=== PATIENT | male | born 1955 | race Caucasian/White ===

== ENCOUNTER 2016-11-24 07:57 | Outpatient (CLI) | payer OTHER ==
--- NOTE | 2016-11-24 09:27 | NUR ---
09 DR AUGUSTE HERE SPEAKING WITH PATIENT, PROCEDURE CANCELLED PT NOT IN ATRIAL FIBRILLATION. PT TO CONTINUE HOME MEDICATIONS AND FOLLOW UP WTIH DR AUGUSTE IN OFFICE IN 3 WEEKS. 909 REVIEWED DC INSTRUCTIONS WITH PT WHO VERBALIZES UNDERSTANDING. PT AMULATORY AND WITHOUT ANY C/O UPON DC.
== END 2016-11-24 09:10 | disposition home or self-care (01) ==
LOC: D.CATH 07:57
DX: Z53.8 Procedure and treatment not carried out for other reasons (principal)

== ENCOUNTER → 2018-11-29 08:04 | Outpatient (CLI) | payer OTHER | END | disposition home or self-care (01) | LOC: D.HCCARDIO 08:04 | PROVIDERS: ATTEND Internal Medicine Cardiovascular Disease | DX: I48.91 Unspecified atrial fibrillation (principal); R06.00 Dyspnea, unspecified ==

== ENCOUNTER 2018-12-19 11:55 | Outpatient (CLI) | payer OTHER ==
--- NOTE | ~2018-12-19 | HEMODYNAMI ---
PATIENT:MICHA DOYLE MEDICAL RECORD: [id number] : 55 LOCATION:D.CAT ADMISSION DATE: 12/19/18 Generatedon:12/19/201815:24 Patient name: MICHA DOYLE Patient #: [id number] SSN: : 1955 Date of study: 12/19/2018 Page: Of Hemodynamic Procedure Report Patient Data Patient Demographics Procedure consent was obtained First Name: MICHA Gender: Male Last Name: VIVEK : 1955 Middle Initial: WU Age: 63 year(s) Patient #: [id number] Race: Unknown Additional ID: [id number] Contact details [address]: [address] [place] [address] State: [place] City: [place] Zip code: [address] Admission Admission Data Admission Date: 12/19/2018 Admission Time: 11:55 Procedure Procedure Types Cath Procedure Diagnostic Procedure LHC LHC w/Coronaries Procedure Description Procedure Date Procedure Date: 12/19/2018 Procedure Start Time: 15:09 Procedure End Time: 15:21 Procedure Staff Name Function Gino St MD Performing Physician Maeve Becerra RT Monitor Tiffanie Madison RT Scrub Wendy Doyle RN Nurse Eagle Quinones RN Schedule Hanger Procedure Data Cath Procedure Fluoroscopy Diagnostic fluoroscopy Total fluoroscopy Time: 2.2 time: 2.2 min min Diagnostic fluoroscopy Total fluoroscopy dose: 605 dose: 605 mGy mGy Contrast Material Contrast Material Type Amount (ml) Isovue 370 33 Entry Location Entry Primary Successful Side Size Upsize Upsize Entry Closure Coats ccessful Closure Location (Fr) 1 (Fr) 2 (Fr) Remarks Device Remarks Radial Right 5 Fr 5 Fr Mechanical artery Compression Estimated blood loss: 5 ml Diagnostic catheters Device Type Used For End Catheter Placement DIAGNOSTIC Antonio 110cm Multi-vessel 5Fr catheter ([id number]) Angiography Procedure Complications No complications Procedure Medications Medication Administration Route Dosage 0.9% NaCl I.V. 100 ml/hr Oxygen etCO2 Nasal cannula 2 l/min Lidocaine 2% added to field 20 Heparin Flush Bag added to field 2 bags (1000units/500ml NS) Radial Cocktail added to field 1 syringe (Verapamil 2mg/Nitro 400mcg/Heparin 1500units) Versed I.V. 2 mg Fentanyl I.V. 50 mcg Fentanyl I.V. 50 mcg Versed I.V. 2 mg Hemodynamics Rest Heart Rate: 112 (bpm) Pressure Samples Time Site Value (mmHg) Purpose Heart Use Rate(bpm) 15:11 LV 129/16,26 Snapshot 103 15:12 AO 107/75(89) Pullback 95 15:12 LV 117/14,30 Pullback 95 Gradients Valve Time Site 1 Site 2 Mean SEP/DFP Peak To Heart Use (mmHg) (sec/min) Peak Rate (mmHg) (bpm) Aortic 15:12 LV AO 12 24 10 95 117/14,30 107/75(89) Calculations Valve P-P Mean Valve Index Valve Source Name Gradient Area Flow (cm2) Aortic 10 12 10 12 Snapshots Pre Cath Intra NCS Post Cath Vital Signs Time Heart Resp SPO2 etCO2 NIBP (mmHg) Rhythm Pain Sedation Rate (ipm) (%) (mmHg) Status Level (bpm) 14:40:19 78 15 97 33.1 148/113(123) A-Fib 0 (11) 10(A) , No pain 14:45:18 80 21 98 23.3 Measuring A-Fib 0 (11) 10(A) , No pain 14:45:38 88 19 98 35.3 173/113(143) A-Fib 0 (11) 10(A) , No pain 14:50:07 96 14 97 13.5 193/119(158) A-Fib 0 (11) 10(A) , No pain 14:54:43 86 19 98 24 206/101(158) A-Fib 0 (11) 10(A) , No pain 14:59:26 86 16 98 18.8 194/112(142) A-Fib 0 (11) 10(A) , No pain 15:04:25 75 16 97 34.6 Measuring A-Fib 0 (11) 9(A) , No pain 15:05:18 71 14 98 16.5 178/124(155) A-Fib 0 (11) 9(A) , No pain 15:09:49 89 15 98 38.3 192/125(154) A-Fib 0 (11) 9(A) , No pain 15:14:19 94 18 98 10.5 168/102(123) A-Fib 0 (11) 9(A) , No pain 15:18:45 91 16 97 35.4 183/99(131) A-Fib 0 (11) 10(A) , No pain Medications Time Medication Route Dose Verified Delivered Reason Notes E ffectiveness by by 14:39:13 0.9% NaCl I.V. 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 2 mg Gino Wendy for Maciel Doyle sedation RN 14:57:58 Fentanyl I.V. 50 mcg Gino Wendy for Maciel Doyle sedation RN 15:02:09 Fentanyl I.V. 50 mcg Gino Wendy for Maciel Doyle sedation RN 15:02:59 Versed I.V. 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 Start room use. 14:28:57 Signed procedure consent form obtained from patient. 14:28:59 Diagnostic Cath status Elective 14:28:59 Time tracking: Regular hours (M-F 7:00 - 5:00) 14:29:03 Plan of Care:Hemodynamics will remain stable., Cardiac rhythm will remain stable., Comfort level will be maintained., Respiratory function will remain adequate., Patient/ family verbilizes understanding of procedure., Procedure tolerated without complication., Recovers from procedure without complications.. 14:32:00 Patient received from Pre/Post Procedure Room to [facility] 1 Alert and oriented. Tansferred to table in Supine position. 14:32:03 Warm blankets applied, and adebayo hugger turned on for patient comfort. 14:32:03 Correct patient and procedure confirmed by team. 14:32:04 ECG and BP/O2 sat monitors applied to patient. 14:39:04 Vital chart was started 14:39:13 0.9% NaCl 100 ml/hr I.V. was administered by Wendy Doyle RN; used for procedure; 14:39:20 Oxygen 2 l/min etCO2 Nasal cannula was administered by Wendy Doyle RN; used for procedure; 14:39:24 Lidocaine 2% 20ml vial added to field was administered by Gino St MD; for local anesthetic; 14:39:28 Heparin Flush Bag (1000units/500ml NS) 2 bags added to field was administered by Gino St MD; used for procedure; 14:39:34 Radial Cocktail (Verapamil 2mg/Nitro 400mcg/Heparin 1500units) 1 syringe added to field was administered by Gino St MD; used for procedure; 14:46:37 Baseline sample Acquired. 14:47:29 Rhythm: atrial fibrillation, atrial flutter 14:47:32 Full Disclosure recording started 14:47:37 H&P Date Dictated: 12/19/2018 Within 30 days and on chart., H&P Addendum completed by physician on day of procedure. (MUST COMPLETE FOR ALL OUTPATIENTS). 14:47:39 Pre-procedure instructions explained to patient. 14:47:39 Pre-op teaching completed and patient verbalized understanding. 14:47:40 Family in waiting room. 14:47:42 Patient NPO since Midnight. 14:47:43 Is the patient allergic to Iodine/contrast media? No. 14:47:44 Was the patient premedicated? No 14:47:47 Is patient on blood thinner?No 14:48:19 Patient diabetic? Yes. 14:48:22 If diabetic: On Metformin? Yes 14:48:25 If on Metformin: Last Dose? 12/17/2018 14:48:29 Previous problem with sedation/anesthesia? No ? 14:48:31 Snore? Yes 14:48:32 Sleep apnea? Yes 14:48:33 Deviated septum? No 14:48:49 Opens mouth fully? No 14:48:50 Sticks out tongue? No 14:49:00 Airway obstruction? Yes EXERTIONAL ASTHMA 14:49:04 Dentures? No ? 14:50:22 Pre procedure: right dorsailis pedis pulse 2+ Normal; easily identifiable; not easily obliterated 14:50:24 Patient pain scale 0/10 ?. 14:50:31 IV patent on arrival in left forearm with 0.9% NaCl at [facility]. 14:50:34 Lab results completed and on chart. 14:51:50 Right Radial & Right Groin area was prepped with chlora-prep and draped in sterile fashion 14:51:52 Alarms reviewed by R. N. 14:51:52 Sharps counted by scrub and verified by R.N. 14:56:40 Physician arrived 14:56:40 --------ALL STOP TIME OUT------ 14:56:41 Final Timeout: patient, procedure, and site verified with staff and physician. All members of the team are in agreement. 14:56:43 Right Radial & Right Groin site verified by team. 14:56:47 Maximum allowable Isovue 370 dose 300ml. Physician notified. (300ml for normal creatinines. For patients with creatinine of 1.7 or higher multiply weight(kg) x 5 divided by creatinine.) 14:56:56 Fire Safety Assessment: A--An alcohol-based skin anteseptic being used preoperatively., C--Open oxygen or nitrous oxide is being used., D--An ESU, laser, or fiber-optic light is being used. 14:57:01 Physical assessment completed. ASA score P 2 - A patient with mild systemic disease as per Gino St MD. 14:57:08 Sedation plan: IV Moderate Sedation Medication:Versed, Fentanyl 14:57:45 Versed 2 mg I.V. was administered by Wendy Doyle RN; for sedation; 14:57:58 Fentanyl 50 mcg I.V. was administered by Wendy Doyle RN; for sedation; 15:02:09 Fentanyl 50 mcg I.V. was administered by Wendy Doyle RN; for sedation; 15:02:59 Versed 2 mg I.V. was administered by Wendy Doyle RN; for sedation; 15:06:21 Zero performed for pressure channel P1 15:09:26 Procedure started. 15:09:35 Local anesthetic to right radial artery with Lidocaine 2% by Gino St MD.INITIAL ACCESS ONLY 15:10:41 A 5 Fr sheath was inserted into the Right Radial artery 15:11:04 Use device set Radial Dx or PCI 15:11:09 ACIST Syringe (49300) opened to sterile field. 15:11:10 Medline Cath Pack ([id number]) opened to sterile field. 15:11:10 Bag Decanter (2002S) opened to sterile field. 15:11:11 DIAGNOSTIC WIRE .035 260cm J wire (407632) opened to sterile field. 15:11:12 ACIST Hand Control (77099) opened to sterile field. 15:11:12 ACIST Manifold (42479) opened to sterile field. 15:11:13 Tegaderm 4 x 4 (1626W) opened to sterile field. 15:11:13 MBrace Wrist Support ([id number]) opened to sterile field. 15:11:15 NEEDLE Cook 21G 4cm Radial ([id number]) opened to sterile field. 15:11:17 EMERALD Guide Wire (999-692) opened to sterile field. 15:11:25 SHEATH 6FR Slender (87-9265) opened to sterile field. 15:11:29 A DIAGNOSTIC Antonio 110cm 5Fr catheter (104399) was advanced over the wire and used for Multi-vessel Angiography. 15:11:51 LV hemodynamics recorded. 15:11:52 LV gram done using LEHMAN 15:11:55 Injector settings: Ml/sec: 5, Volume: 15, 15:12:17 EF : 25 % 15:13:52 RCA angiography performed. 15:14:04 Injector settings: Ml/sec: 3, Volume: 6, 15:14:46 LCA angiography performed. 15:14:50 Injector settings: Ml/sec: 3, Volume: 6, 15:16:45 Catheter removed. 15:18:53 TR BAND Large ([id number]) opened to sterile field. 15:19:09 Sheath removed intact; hemostasis achieved with Mechanical Compression to the Right Radial artery. 15:19:09 Sheath upsized to a 5 Fr. 15:19:13 Procedure ended.(Physican Out) 15:19:40 Fluoroscopy time 02.20 minutes. 15:19:45 Fluoroscopy dose: 605 mGy 15:19:45 Flurop Dose total: 605 15:19:50 Contrast amount:Isovue 370 33ml. 15:19:51 Sharps counted by scrub and verified by R.N. 15:20:00 TR band inflated with 10cc of air. 15:20:02 Insertion/operative site no bleeding no hematoma. 15:20:10 Post-op/insertion site Right Radial artery dressed using a 4 x 4 and Tegaderm. 15:20:14 Post procedure rhythm: unchanged. 15:20:21 Estimated blood loss: 5 ml 15:20:23 Post procedure instruction explained to patient.Patient verbalizes understanding. 15:20:23 Patient needs reinforcement of post procedure teaching. 15:20:33 Procedure and supply charges have been captured, reviewed, submitted and are correct. 15:20:39 Procedure Complication : No complications 15:20:42 Vital chart was stopped 15:20:49 See physician's report for complete and final results. 15:20:52 Report given to Pre/Post Procedure Room. 15:20:55 Patient transfered to Pre/Post Procedure Room with Stretcher. 15:21:01 Procedure ended. 15:21:01 Full Disclosure recording stopped 15:21:06 End room use (Document Last) Device Usage Item Name Manufacture Quantity Catalog Hospital Part Current Minimal Lot# / Number Charge Number Stock Stock Serial# Code ACIST Acist 1 68524 441528 996726 391869 20 Syringe Medical (29201) Systems Inc Medline Medline 1 [id number] 772814 28057 989034 5 Cath Pack ([id number]) Bag Microtek 1 2001S 472132 84594 230741 5 Decanter Medical Inc. () DIAGNOSTIC [facility] 1 459638 008290 952133 067692 30 WIRE .035 260cm J wire (277043) ACIST Hand Acist 1 88226 756605 002997 156912 5 Control Medical (19044) Systems Inc ACIST Acist 1 23428 349603 452712 752810 5 Manifold Medical (89083) Systems Inc Tegaderm 4 3M 1 1626W 386332 520804 528519 5 x 4 (1626W) MBrace Advanced 1 140-0250-00 651061 03423 196754 5 Wrist Vascular Support Dynamics ([id number]) NEEDLE Polybiotics 1 V46794 298652 463439 171132 5 21G 4cm Radial (Z17885) EMERALD Cardinal 1 502-195 233888 605718 737251 5 Guide Wire Health (729-206) SHEATH 6FR Terumo 1 [id number] 981158 002671 323092 5 Slender (801060) DIAGNOSTIC Terumo 1 40-5023 116327 084766 803052 5 Antonio 110cm 5Fr catheter (258283) TR BAND Terumo 1 [id number] 010578 675555 832863 40 Large ([id number]) Signature Audit [place] Stage Time Signature Unsigned Intra-Procedure 12/19/2018 Maeve Becerra 3:24:42 PM RT(R) Signatures Monitor : Maeve Becerra RT Signature : Date : Time : [place] [id number] [place] [address]
[2018-12-19] MEDS ORDERED: CATAPRES0.2 MG PO (12:20)
[2018-12-19] MEDS ORDERED: COZAAR100 MG PO (12:20)
[2018-12-19] MEDS ORDERED: INVOKANA300 MG PO (12:21)
[2018-12-19] MEDS ORDERED: COUMADIN1 MG PO (12:21)
[2018-12-19] MEDS ORDERED: BYDUREON P2 MG/0.65 SC (12:22)
[2018-12-19] MEDS ORDERED: LOTREL 10-40 M1 EACH PO (12:22)
[2018-12-19] MEDS ORDERED: TRESIBA FL100 UNIT/1 SC (12:23)
[2018-12-19] MEDS ORDERED: METFORMIN HCL500 M1 PO (12:23)
[2018-12-19] MEDS ORDERED: PRAVACHOL40 MG PO (12:24)
[2018-12-19 12:33] VITALS: BP 144/96; BMI 32.7
[2018-12-19 12:41] LABS: BASOPHILS 0.3 % (0-2); HEMATOCRIT 39.9 % (42.0-54.0); HEMOGLOBIN 12.7 g/dL (13.5-17.5); IMMATURE GRANULOCYTES 0.1 % (0-5); LYMPHOCYTES 15.8 % (15-50); MCH 25.6 pg (26.0-34.0); MCHC 31.8 g/dL (31.0-37.0); MCV 80.3 fL (80.0-100.0); MEAN PLATELET VOLUME 9.5 fL (7.4-10.4); MONOCYTES 6.8 % (2-11); PLATELET COUNT 261 10x3/uL (130-400); RBC 4.97 10x6/uL (4.20-6.10); RDW 17.5 % (11.5-14.5); WBC 7.7 10x3/uL (4.8-10.8)
[2018-12-19 12:51] LABS: INR 1.16 (0.85-1.17); PROTIME 14.3 SECONDS (11.6-15.0)
[2018-12-19 12:52] LABS: ANION GAP 11.8 mmol/L (8-16); CALCIUM 9.7 mg/dL (8.5-10.1); CARBON DIOXIDE 29.5 mmol/L (21.0-32.0); CREATININE - SERUM 1.2 mg/dL (0.6-1.3); POTASSIUM - SERUM 3.3 mmol/L (3.5-5.1)
--- NOTE | 2018-12-19 15:30 | NUR ---
PT ARRIVED BY STRETCHER. PLACED ON MONITORS. AT BEDSIDE. VSS. ASSESSMENT COMPLETED. CALL LIGHT WITHIN REACH. DR. AUGUSTE ROUNDED AND SPOKE WITH PT'S FAMILY.
--- NOTE | 2018-12-19 15:45 | NUR ---
PT'S HEAD OF BED AT 30 DEGREES. EASILY AROUSED FROM SLEEP. SET UP WITH DRINK AND SANDWICH TRAY. RIGHT RADIAL TR BAND IN PLACE. NO BLEEDING/HEMATOMA NOTED.
--- NOTE | 2018-12-19 16:14 | NUR ---
RIGHT RADIAL TR BAND IN PLACE. NO BLEEDING/HEMATOMA NOTED. CALL LIGHT WITHIN REACH. DENIES PAIN/NAUSEA. VSS.
--- NOTE | 2018-12-19 16:30 | NUR ---
3cc OF AIR REMOVED FROM TR BAND. NO BLEEDING/HEMATOMA NOTED. VSS. PT RESTING COMFORTABLY.
--- NOTE | 2018-12-19 16:45 | NUR ---
3cc OF AIR REMOVED FROM TR BAND. NO BLEEDING/HEMATOMA NOTED. TOLERATING WELL. VSS. PT DENIES PAIN/NAUSEA
--- NOTE | 2018-12-19 17:01 | NUR ---
3cc OF AIR REMOVED FROM TR BAND. NO BLEEDING/HEMATOMA NOTED. CALL LIGHT WITHIN REACH. VSS. NO NEEDS AT THIS TIME.
--- NOTE | 2018-12-19 17:16 | NUR ---
LEFT FA PIV D/C'D WITH CATH TIP INTACT. PT TOLERATED WELL. VSS. RIGHT WRIST TR BAND IN PLACE. NO BLEEDING/HEMATOMA NOTED. PT INSTRUCTED TO GET DRESSED. FAMILY AT BEDSIDE FOR ASSISTANCE.
--- NOTE | 2018-12-19 17:20 | NUR ---
PT AMBULATED TO RESTROOM. VOIDED WITHOUT DIFFICULTY. BACK TO ROOM. DIDSUCSSED DISCHARGE INSTRUCTIONS WITH PT AND PT'S FAMILY. THEY VOICED UNDERSTANDING. TR BAND WEANED OFF AND DRESSING APPLIED. NO BLEEDING/HEMATOMA NOTED. RIGHT WRIST BRACE IN PLACE. PT INSTRUCTED TO KEEP ON FOR 2 HOURS AFTER ARRIVAL HOME.
--- NOTE | 2018-12-19 17:40 | NUR ---
RIGHT WRIST DRESSING C/D/I. NO S/S OF HEMATOMA NOTED. PT TAKEN OUT TO VEHICLE BY WHEELCHAIR. NO S/S OF DISTRESS NOTED. ALL BELONGINGS AND PAPERWORK IN HAND.
== END 2018-12-19 17:40 | disposition home or self-care (01) ==
LOC: D.CATH 11:55
PROVIDERS: ATTEND Internal Medicine Cardiovascular Disease
DX: I51.9 Heart disease, unspecified (principal); I48.91 Unspecified atrial fibrillation; Z01.812 Encounter for preprocedural laboratory examination